=== PATIENT | female | born 1940 | race Caucasian/White ===

== ENCOUNTER 2020-02-19 16:15 | Inpatient (IN) | payer OTHER ==
[~2020-02-19] VITALS: Ht 162.6 cm; Wt 50.7 kg
[~2020-02-19 16:15] MED LIST: AMLO-257 PO; APIX5TAB PO; DILT60TA3 PO; DOXY100T2 PO; DRON400T2 PO; INSU100I21 SQ; LISI-613 PO; METO25 PO
[2020-02-19 17:05] LABS: BASOPHILS % (AUTO) 0.7 % (0.0-5.0); EOSINOPHILS % (AUTO) 1.1 % (0.0-8.0); HEMATOCRIT 41.8 % (36-48); LYMPHOCYTES % (AUTO) 28.8 % (21.0-51.0); MEAN CORPUSCULAR HEMOGLOBIN 31.6 pg (27.0-33.0); MEAN CORPUSCULAR HGB CONC 33.5 g/dL (32.0-36.0); MEAN CORPUSCULAR VOLUME 94.4 fL (79-99); MONOCYTES % (AUTO) 5.5 % (3.0-13.0); NEUTROPHILS % (AUTO) 63.7 % (40.0-77.0); PLATELET COUNT (AUTO) 210 K/uL (130-400); RED BLOOD CELL COUNT(AUTO) 4.43 MIL/uL (4.00-5.50); RED CELL DISTRIBUTION WIDTH 12.9 % (11.0-15.5); WHITE BLOOD COUNT (AUTO) 4.6 K/uL (4.8-10.8)
[2020-02-19 17:21] LABS: CREATININE 0.9 mg/dL (0.5-1.5); POTASSIUM 3.8 mmol/L (3.5-5.1)
[2020-02-19 17:25] LABS: ALBUMIN 3.9 g/dL (3.5-5.0); BILIRUBIN,TOTAL 0.3 mg/dL (0.2-1.0); TOTAL PROTEIN, SERUM 7.9 g/dL (6.0-8.3)
[2020-02-19] MEDS ORDERED: DILTIAZEM HCL 5 MG/ML 10 ML VIAL IV ONE (17:27)
[2020-02-19] MEDS ORDERED: DILTIAZEM HCL 125 MG/25 ML VIAL IV ONE (19:33)
[2020-02-19] MEDS ORDERED: SODIUM CHLORIDE 0.9% 100 ML IV ONE (19:33)
[2020-02-19] MEDS ORDERED: ONDANSETRON HCL 4 MG/2 ML VIAL IV PRN (20:00)
[2020-02-19] MEDS ORDERED: ACETAMINOPHEN 325 MG TAB PO PRN ×2 (20:00)
[2020-02-19] MEDS ORDERED: LACTULOSE 20 GM/30 ML UDCUP PO PRN (20:00)
[2020-02-19 20:33] LABS: INR 0.98 (0.85-1.15); PARTIAL THROMBOPLASTIN TIME 25.8 SEC (26.3-35.5); PROTHROMBIN TIME 10.6 SEC (9.6-11.6)
[2020-02-19] MEDS: INSULIN HUMULIN R 100 UNIT/ML 3ML SQ SCH (21:00)
[2020-02-19] MEDS: FAMOTIDINE 20MG TAB 20 MG TAB PO SCH (21:00)
[2020-02-19 22:48] LABS: APPEARANCE,URINE Clear (CLEAR); BILIRUBIN,URINE Negative (NEGATIVE); COLOR,URINE Yellow (YELLOW); GLUCOSE, URINE (UA) Negative (NEGATIVE); KETONES,URINE Negative (NEGATIVE); LEUKOCYTE ESTERASE ,URINE Negative (NEGATIVE); NITRATE,URINE Negative (NEGATIVE); OCCULT BLOOD,URINE Negative (NEGATIVE); PROTEIN,URINE Negative (NEGATIVE); UROBILINOGEN,URINE 0.2 mg/dL (0.2-1.0)
[2020-02-19] MEDS ORDERED: FAMOTIDINE 20MG TAB 20 MG TAB ONE (23:09)
[2020-02-19] MEDS ORDERED: INSULIN HUMULIN R 100 UNIT/ML 3ML ONE (23:10)
[2020-02-20] VITALS (8 sets, daily range): BP systolic 100–122; BP diastolic 52–72
--- NOTE | 2020-02-20 00:05 | NUR ---
PT ARRIVED TO ROOM 421 VIA STRETCHER WITH ER STAFF. PT AMBULATES WELL ON HER OWN, INDEPENDENT. CARDIZEM DRIP AT 10MG/ML, HEART RATE AFIB 70. PT DENIES CHEST PAIN OR DISCOMFORT. CALL LIGHT WITHIN REACH. HOME MEDS AT BEDSIDE.
--- NOTE | 2020-02-20 00:55 | NUR ---
CARDIZEM DRIP NOW AT 5MG/ML HEART RATE 65 AFIB. PT DENIES ANY CHEST PAIN OR DISCOMFORT.
[2020-02-20] MEDS ORDERED: DOXA2TAB2 PO (01:14)
[2020-02-20] MEDS ORDERED: DILT300C54 PO (01:15)
[2020-02-20] MEDS ORDERED: DRON400T2 PO (01:16)
[2020-02-20] MEDS ORDERED: ROSU5TAB12 PO (01:18)
[2020-02-20] MEDS ORDERED: AMLO-257 PO (01:19)
[2020-02-20 04:46] LABS: BASOPHILS % (AUTO) 0.7 % (0.0-5.0); EOSINOPHILS % (AUTO) 2.2 % (0.0-8.0); HEMATOCRIT 37.2 % (36-48); LYMPHOCYTES % (AUTO) 33.3 % (21.0-51.0); MEAN CORPUSCULAR HEMOGLOBIN 31.6 pg (27.0-33.0); MEAN CORPUSCULAR HGB CONC 33.6 g/dL (32.0-36.0); MEAN CORPUSCULAR VOLUME 93.9 fL (79-99); MONOCYTES % (AUTO) 5.2 % (3.0-13.0); NEUTROPHILS % (AUTO) 58.4 % (40.0-77.0); PLATELET COUNT (AUTO) 192 K/uL (130-400); RED BLOOD CELL COUNT(AUTO) 3.96 MIL/uL (4.00-5.50); RED CELL DISTRIBUTION WIDTH 12.6 % (11.0-15.5)
[2020-02-20 04:54] LABS: CREATININE 0.9 mg/dL (0.5-1.5); POTASSIUM 3.8 mmol/L (3.5-5.1)
--- NOTE | 2020-02-20 06:53 | NUR ---
PT CONTINUES WITH CARDIZEM AT 5MG/ML. HEART RATE RANGING FROM 80s-90s AFIB. PT DENIES CHEST PAIN OR DISCOMFORT. BP 116/63
[2020-02-20] MEDS: INSULIN HUMULIN R 100 UNIT/ML 3ML SQ SCH ×4 (07:30→21:00)
[2020-02-20] MEDS: FAMOTIDINE 20MG TAB 20 MG TAB PO SCH ×2 (08:49→21:14)
--- NOTE | 2020-02-20 09:00 | NUR ---
CARDIZEM DRIP PATIENT AWAKE ALERT, AND ORIENTED. DENIES CHEST PAIN, CONTINUES ON CARDIZEM DRIP AT 5MG/HR FOR RATE CONTROL, EPISODES OF 110-130 AFIB. TELEMETRY MONITORING.
[2020-02-20] MEDS ORDERED: DILTIAZEM HCL 120 MG CAP.SR.24H PO ONE (12:39)
[2020-02-20] MEDS: DILTIAZEM HCL 180 MG CAP.SR.24H PO SCH (12:48)
[2020-02-20] MEDS: APIXABAN 5 MG TABLET PO SCH ×2 (12:50→21:14)
--- NOTE | 2020-02-20 14:00 | NUR ---
CARDIZEM DRIP WEANED OFF, TOLERATED WELL. TELEMETRY AFIB 70-90 WITH EPISODES OF RSR.
--- NOTE | 2020-02-20 16:00 | NUR ---
MET W PATIENT AND SPOUSE AT BEDSIDE FOR [facility] W SP[facility]SE [facility] WHO WILL PROVIDE TRANSPORT PTIENT IS INDEPENDENT, AMBULATORY, NO DME, DRIVES, FOLLOW WITH HER CLNINC IN [place]ARCELO DING MD, DR, CUA, [facility], CM TO [facility]. Addendum: 02/21/20 at 1604 by NICK MAZA RN CM Amended: Links added.
--- NOTE | 2020-02-20 16:20 | NUR ---
1600 patient signed IM Letter, I faxed IM Letter to [phone] and placed in chart under consent tab.
--- NOTE | 2020-02-20 19:30 | NUR ---
CONSULT CALLED IN TO [facility]
[2020-02-20] MEDS ORDERED: APIXABAN 5 MG TABLET PO SCH (21:00)
[2020-02-20] MEDS: DRONEDARONE HYDROCHLORIDE 400 MG TABLET PO SCH (21:14)
[2020-02-21 03:39] VITALS: BP 111/57
[2020-02-21] MEDS: INSULIN HUMULIN R 100 UNIT/ML 3ML SQ SCH ×3 (06:20→16:30)
[2020-02-21 07:00] VITALS: BP 94/51
[2020-02-21] MEDS: APIXABAN 5 MG TABLET PO SCH (08:15)
[2020-02-21] MEDS: DILTIAZEM HCL 180 MG CAP.SR.24H PO SCH (08:15)
[2020-02-21] MEDS: DRONEDARONE HYDROCHLORIDE 400 MG TABLET PO SCH (08:15)
[2020-02-21] MEDS: FAMOTIDINE 20MG TAB 20 MG TAB PO SCH (08:15)
[2020-02-21] MEDS ORDERED: DILTIAZEM HCL 300 MG PO SCH (09:00)
[2020-02-21 11:00] VITALS: BP 122/73
[2020-02-21] MEDS ORDERED: DILTIAZEM HCL 120 MG CAP.SR.24H PO SCH (13:00)
[2020-02-21 15:00] VITALS: BP 112/57
--- NOTE | 2020-02-21 18:40 | NUR ---
DR. MCFADDEN ROUNDED, NEW ORDER DISCHARGE PATIENT HOME. CONTINUE ALL HOME MEDICATIONS WITH NO CHANGES. FOLLOW UP APPOINTMENT WITH DR. HALL SET FOR FEB 25. PATIENT AT THIS TIME DENIES ANY CHEST PAIN OR PALPITATIONS. HEART RATE AFIB CONTROLLED IN THE 70S. IV AND TELE REMOVED. PATIENTS AT BEDSIDE. ALL QUESTIONS ANSWERED
== END 2020-02-21 18:30 | disposition home or self-care (01) | DRG 309 ==
LOC: EDH 16:15 → OBSVTOIN 19:54 → EDHIP 19:54 → 4DH 02-20 00:05 → DAHIP 02-21 16:36 → 4DH 02-21 16:36
PROVIDERS: ADMIT Internal Medicine; ATTEND Internal Medicine
DX: I48.0 Paroxysmal atrial fibrillation (principal); D68.69 Other thrombophilia; I10 Essential (primary) hypertension; E10.9 Type 1 diabetes mellitus without complications; E78.5 Hyperlipidemia, unspecified; I44.7 Left bundle-branch block, unspecified; Z88.0 Allergy status to penicillin; Z88.8 Allergy status to other drugs, medicaments and biological substances; Z79.01 Long term (current) use of anticoagulants; Z79.899 Other long term (current) drug therapy; Z79.4 Long term (current) use of insulin; Z86.74 Personal history of sudden cardiac arrest; Z87.891 Personal history of nicotine dependence
CPT/HCPCS: 36415; 71045; 80048; 80053; 81003; 82550; 82948; 83690; 83880; 84443; 84484; 85025; 85610; 85730; 93005; G0378; J1815; J3490

== ENCOUNTER 2020-05-28 17:02 | Observation (INO) | payer OTHER ==
[~2020-05-28] VITALS: Ht 162.6 cm; Wt 49.9 kg
[~2020-05-28 17:02] MED LIST changes: +DILT300C54 PO; -DILT60TA3 PO; +DOXA2TAB2 PO; -DOXY100T2 PO; -DRON400T2 PO; +DRON400T7 PO; -LISI-613 PO; +LISI20TA24 PO; -METO25 PO; +ROSU5TAB12 PO
[2020-05-28 17:44] LABS: BASOPHILS % (AUTO) 0.6 % (0.0-5.0); EOSINOPHILS % (AUTO) 1.7 % (0.0-8.0); LYMPHOCYTES % (AUTO) 25.9 % (21.0-51.0); MEAN CORPUSCULAR HEMOGLOBIN 31.7 pg (27.0-33.0); MEAN CORPUSCULAR HGB CONC 33.3 g/dL (32.0-36.0); MEAN CORPUSCULAR VOLUME 95.1 fL (79-99); MONOCYTES % (AUTO) 6.3 % (3.0-13.0); NEUTROPHILS % (AUTO) 65.3 % (40.0-77.0); PLATELET COUNT (AUTO) 158 K/uL (130-400); RED BLOOD CELL COUNT(AUTO) 3.47 MIL/uL (4.00-5.50); RED CELL DISTRIBUTION WIDTH 12.6 % (11.0-15.5); WHITE BLOOD COUNT (AUTO) 4.7 K/uL (4.8-10.8)
[2020-05-28 18:03] LABS: INR 1.15 (0.85-1.15); PROTHROMBIN TIME 12.4 SEC (9.6-11.6)
[2020-05-28 18:05] LABS: PARTIAL THROMBOPLASTIN TIME 29.8 SEC (26.3-35.5)
[2020-05-28 18:12] LABS: CREATININE 1.5 mg/dL (0.5-1.5); POTASSIUM 4.5 mmol/L (3.5-5.1)
[2020-05-28 18:13] LABS: B-TYPE NATRIURETIC PEPTIDE 135 pg/mL (0-100)
[2020-05-28 18:16] LABS: ALBUMIN 3.2 g/dL (3.5-5.0); BILIRUBIN,TOTAL 0.3 mg/dL (0.2-1.0); MAGNESIUM 2.7 mg/dL (1.80-2.40); TOTAL PROTEIN, SERUM 6.3 g/dL (6.0-8.3)
[2020-05-28] MEDS ORDERED: ONDANSETRON 4MG INJ IV PRN (20:15)
[2020-05-28] MEDS ORDERED: ACETAMINOPHEN 325 MG TAB PO PRN ×2 (20:15)
[2020-05-28] MEDS ORDERED: APIXABAN 2.5 MG TABLET PO SCH (21:00)
[2020-05-28] MEDS: INSULIN GLARGINE 100 UNITS/ML 10 ML VIAL SQ SCH (21:00)
[2020-05-28 21:24] LABS: HEMOGLOBIN A1C 7.2 % (4.0-6.0)
[2020-05-28 21:52] LABS: CREATINE KINASE, TOTAL 71 U/L (21-232); MYOGLOBIN 39 ng/mL (10-92); PHOSPHORUS 3.4 mg/dL (2.5-4.9); TROPONIN I < 0.04 ng/mL (0.00-0.06)
[2020-05-28] MEDS ORDERED: FAMOTIDINE 20MG VIAL IV ONE (21:52)
[2020-05-28] MEDS ORDERED: APIXABAN 2.5 MG TABLET PO ONE (21:54)
[2020-05-28 23:54] LABS: APPEARANCE,URINE Clear (CLEAR); BILIRUBIN,URINE Negative (NEGATIVE); COLOR,URINE Yellow (YELLOW); GLUCOSE, URINE (UA) Negative (NEGATIVE); KETONES,URINE 15 mg/dL (NEGATIVE); LEUKOCYTE ESTERASE ,URINE Negative (NEGATIVE); NITRATE,URINE Negative (NEGATIVE); OCCULT BLOOD,URINE Negative (NEGATIVE); PH,URINE 6.5 (5.0-8.0); PROTEIN,URINE Negative (NEGATIVE); UROBILINOGEN,URINE 0.2 mg/dL (0.2-1.0)
[2020-05-29 05:26] LABS: CREATINE KINASE, TOTAL 62 U/L (21-232); MYOGLOBIN 39 ng/mL (10-92); TROPONIN I < 0.04 ng/mL (0.00-0.06)
[2020-05-29] MEDS ORDERED: DILTIAZEM 120MG SR CAP PO ONE (08:18)
[2020-05-29] MEDS ORDERED: APIXABAN 2.5 MG TABLET PO ONE (08:18)
[2020-05-29] MEDS ORDERED: CARVEDILOL 3.125 MG TABLET PO ONE (08:18)
[2020-05-29] MEDS ORDERED: FAMOTIDINE 20MG VIAL IV ONE (08:19)
[2020-05-29] MEDS ORDERED: INSULIN HUMULIN R 100 UNIT/ML 3ML ONE (08:40)
[2020-05-29] MEDS: APIXABAN 2.5 MG TABLET PO SCH ×2 (09:00→21:36)
[2020-05-29] MEDS: DILTIAZEM 120MG SR CAP PO SCH (09:00)
[2020-05-29] MEDS: FAMOTIDINE 20MG VIAL IV SCH (09:00)
[2020-05-29] MEDS: CARVEDILOL 3.125 MG TABLET PO SCH ×2 (09:00→21:36)
[2020-05-29] MEDS: INSULIN HUMULIN R 100 UNIT/ML 3ML SQ SCH ×3 (11:30→21:00)
[2020-05-29] MEDS ORDERED: ROSU10TA28 PO (11:41)
[2020-05-29] MEDS ORDERED: DRON400T7 PO (11:41)
[2020-05-29] MEDS ORDERED: ATEN1TAB3 PO (11:41)
[2020-05-29] MEDS ORDERED: DILT360C32 PO (11:43)
[2020-05-29] MEDS ORDERED: INSU100V IV (11:47)
[2020-05-29 13:17] LABS: CREATINE KINASE, TOTAL 139 U/L (21-232); MYOGLOBIN 40 ng/mL (10-92); TROPONIN I < 0.04 ng/mL (0.00-0.06)
[2020-05-29 17:06] VITALS: BP 146/51
[2020-05-29] MEDS ORDERED: DILT300C51 PO (17:20)
[2020-05-29 19:41] VITALS: BP 127/52
[2020-05-29] MEDS: INSULIN GLARGINE 100 UNITS/ML 10 ML VIAL SQ SCH (21:00)
[2020-05-30 00:19] VITALS: BP 144/69
[2020-05-30 04:34] VITALS: BP 128/66
[2020-05-30 04:35] VITALS: BP_SYST 128; BP_SYST 134; BP_DIAS 61; BP_DIAS 73
[2020-05-30 06:47] VITALS: BP 158/75
[2020-05-30] MEDS: INSULIN HUMULIN R 100 UNIT/ML 3ML SQ SCH ×3 (07:24→16:30)
[2020-05-30 08:33] VITALS: BP 135/69
[2020-05-30] MEDS: APIXABAN 2.5 MG TABLET PO SCH (08:58)
[2020-05-30] MEDS: CARVEDILOL 3.125 MG TABLET PO SCH (09:00)
[2020-05-30] MEDS: FAMOTIDINE 20MG VIAL IV SCH (09:01)
[2020-05-30] MEDS: DILTIAZEM 120MG SR CAP PO SCH (09:01)
[2020-05-30 12:17] VITALS: BP 125/58
[2020-05-30] MEDS ORDERED: CARV3.12 PO (15:13)
[2020-05-30] MEDS ORDERED: DILT120C95 PO (15:13)
== END 2020-05-30 15:50 | disposition home or self-care (01) ==
LOC: EDH 17:02 → EDHIP 20:15 → 4DH 05-29 16:53
PROVIDERS: ADMIT Internal Medicine; ATTEND Internal Medicine
DX: R00.1 Bradycardia, unspecified (principal); I95.9 Hypotension, unspecified; I10 Essential (primary) hypertension; I48.91 Unspecified atrial fibrillation; E10.9 Type 1 diabetes mellitus without complications; M85.80 Other specified disorders of bone density and structure, unspecified site; E78.5 Hyperlipidemia, unspecified; D68.59 Other primary thrombophilia; Z87.891 Personal history of nicotine dependence; Z96.41 Presence of insulin pump (external) (internal); Z79.01 Long term (current) use of anticoagulants; Z79.899 Other long term (current) drug therapy; Z88.0 Allergy status to penicillin; Z88.8 Allergy status to other drugs, medicaments and biological substances
CPT/HCPCS: 36415 ×2; 71045; 80053; 81003; 82550 ×4; 82948 ×8; 83036; 83605; 83735 ×2; 83874 ×3; 83880; 84100; 84484 ×4; 85025; 85610; 85730; 87040 ×2; 93005 ×5; 96374; 99285; G0378 ×44; J1815; J3490 ×3

== ENCOUNTER 2021-02-26 18:08 | Emergency (ER) | payer OTHER ==
[~2021-02-26 18:08] MED LIST changes: -AMLO-257 PO; +CARV3.12 PO; +DILT120C95 PO; -DILT300C54 PO; -DOXA2TAB2 PO; +INSU100V IV; -LISI20TA24 PO; +ROSU10TA28 PO; -ROSU5TAB12 PO
== END 2021-02-26 18:10 ==
LOC: EDH 18:08
DX: I46.9 Cardiac arrest, cause unspecified (principal); I25.10 Atherosclerotic heart disease of native coronary artery without angina pectoris; Z88.0 Allergy status to penicillin; Z95.0 Presence of cardiac pacemaker; Z79.899 Other long term (current) drug therapy; Z79.01 Long term (current) use of anticoagulants